=== PATIENT | female | born 1970 | race Caucasian/White ===

== ENCOUNTER 2018-10-09 21:19 | Outpatient (REF) | payer BC, SELFPAY ==
--- NOTE | 2018-10-09 16:30 | PAPFT_PTH ---
PATIENT: Yessi Sahni LOC: [facility] U#:[id number] AGE/SX: 48/F ROOM: RE10/09/[address]: NEETU Gan : 1970 BED: DIS: 10/09/2018 SPEC #: [id number] RECD: 10/12/18 13:10 STATUS: JACEK TERESA #: [id number] MENDEZ: 10/09/18 16:[address]: Amanda Benavides DEPT: [facility] Cytology RECD BY: Magdalena Mtz Tissues: 1 - CX/ENDOCX FOR PAP SMEARS Procedures: PAP THIN PREP/UVM Screening HPV DNA PROBE Comments: [id number]
== END 2018-10-09 21:39 ==
LOC: LBN 21:19
PROVIDERS: PCP Nurse Practitioner Family; Visit Provider Nurse Practitioner Family
DX: Z12.4 Encounter for screening for malignant neoplasm of cervix (principal); Z11.51 Encounter for screening for human papillomavirus (HPV)
CPT/HCPCS: 88142; 87624

== ENCOUNTER 2018-10-14 04:38 | Outpatient (CLI) | payer BC, SELFPAY ==
[2018-10-14 11:17] LABS: Hemoglobin A1C 5.4 % (4.5-6.2)
[2018-10-14 11:22] LABS: ALT 68 U/L (12-78); AST 37 U/L (15-37); Albumin 3.4 g/dL (3.4-5.0); Alkaline Phosphatase 119 U/L (46-116); BUN 16 mg/dL (7-18); Bilirubin, Total 0.4 mg/dL (0.2-1.0); CREATININE 0.92 mg/dL (0.55-1.02); Calcium 9.4 mg/dL (8.5-10.1); Chloride 102 mmol/L (98-107); Cholesterol 244 mg/dL (50-200); Glucose 85 mg/dL (70-100); HDL Cholesterol 72 mg/dL (40-60); LDL CHOLESTEROL 151 mg/dL (<100); Potassium 4.4 mmol/L (3.5-5.1); Sodium 140 mmol/L (136-145); TSH 2.05 uIU/mL (0.358-3.74); Total Protein 7.5 g/dL (6.4-8.2); Triglyceride 82 mg/dL (30-150)
[2018-10-14 11:47] LABS: FREE T4 0.92 ng/dL (0.76-1.46)
== END 2018-10-14 04:58 ==
PROVIDERS: PCP Nurse Practitioner Family; Visit Provider Nurse Practitioner Family
DX: E78.5 Hyperlipidemia, unspecified (principal)
CPT/HCPCS: 36415; 80053; 80061; 83721; 83036; 84439; 84443

== ENCOUNTER → 2019-01-11 | Outpatient (CLI) | payer BC, SELFPAY ==
--- NOTE | 2019-01-11 10:30 | DI.MAMMO_ITS ---
SYMPTOM/DIAGNOSIS: SCREENING Z12.31 BILATERAL SCREENING MAMMOGRAM: Mammograms were interpreted according to the usual protocol including computer analysis with CAD system, tomosynthesis and C view imaging. Comparison is made with exams from 2013 through 2017. The breasts are composed of fatty density tissue, breast density category A. No suspicious masses or suspicious microcalcifications are seen. There has been no significant change. IMPRESSION: Category 1, negative mammogram. Yearly screening mammography is recommended. Breast density category A. SA ASSESSMENT OF FINDINGS: Negative. Category 1. Patient will receive a letter notifying them of these results. BI-RAD category A. The breasts are almost entirely fatty.
== END ==
PROVIDERS: PCP Nurse Practitioner Family; Visit Provider Nurse Practitioner Family
DX: Z12.31 Encounter for screening mammogram for malignant neoplasm of breast (principal)
CPT/HCPCS: 77063; 77067

== ENCOUNTER 2019-01-25 09:16 | Day surgery (SDC) | payer BC, SELFPAY ==
--- NOTE | 2019-01-25 06:52 | W.COLOREPORT ---
Date of service: 01/25/19 Time of Service: 10:36 Colonoscopy Report Date of procedure: 01/25/19 Pre-op diagnosis general: Colon Cancer Screening Post-op diagnosis procedure note: same Procedure: Colonoscopy Surgeon: Brigitte Zamorano Anesthesia proc note operative: other (General/ ASA2 /Janay Kirkland, ESTHELA) Estimated blood loss (mL): 0 Pathology: none sent Complications: None Disposition: same day Indications: Mrs. Sahni is a pleasant 48 year old female who was seen in the office for a screening colonoscopy. Risks, benefits and complications have been reviewed. Complications include but are not limited to bleeding, pain, perforation, missed small lesion/polyp, sore throat, aspiration and adverse reaction to the medications. Questions were entertained and answered to their satisfaction and they wished to proceed. No guarantees were given or implied. Prep: Miralax/Dulcolax Procedure Start Time: 10:36 Procedure End Time: 10:59 Retraction Time: 16 Findings: Normal colon Procedure Description: After informed consent was obtained the patient was taken to the procedure room and placed in a left decubitous position. Monitors were applied and a time out was done. The patients name, date of , procedure, allergies to medications and metal in their body was reviewed. The patient was then sedated. Once sedated and comfortable a rectal exam was done. External exam was normal. Internal exam revealed a normal sphincter tone and no palpable masses. The scope was then introduced and retro-flexed. No internal hemorrhoids were identified. The scope was then advanced to the cecum without difficulty. The TI and appendiceal orifice were identified. The prep was adequate. The scope was then slowly retracted over 16 minutes back into the rectum. There were no polyps and no Diverticula. The scope was removed and the patient was woken up and taken back to Same day surgery in stable condition. The patient tolerated the procedure well and there were no immediate complications. Follow up: The patient should follow up in 10 years unless they develop changes in bowel habits or other new gastrointestinal complaints.
--- NOTE | 2019-01-25 06:54 | W.PM.DSUDISC ---
Discharge Plan Disposition Patient Disposition: HOME Condition: Good Discharge Details Reason For Visit: Colon Cancer screening Attending Provider: Brigitte Zamorano Primary Care Provider: Amanda Benavides Home Meds and New Rx's Prescriptions: Continued fluoxetine 40 mg capsule 40 mg PO DAILY Qty: 90 RF: 4 cetirizine 10 mg capsule 10 mg PO DAILY RF: 0 hydrocortisone [Proctosol HC] 2.5 % cream with perineal applicator 1 applic OK DAILY PRN (Reason: hemorrhoids) Qty: 28.35 RF: 4 epinephrine [EpiPen 2-Arthur] 0.3 MG/0.3 ML auto-injector 0.3 mg IM ONCE PRNRF: 0 albuterol sulfate [ProAir HFA] 8.5 GM HFA aerosol inhaler 2 puff Inhalation Q4H PRN RF: 0 Women's Daily Multivitamin 1 EACH tablet 1 ea PO DAILY RF: 0 omeprazole 10 mg capsule,delayed release(DR/EC) 10 mg PO DAILY Qty: 90 RF: 4 Discontinued polyethylene glycol 3350 17 gram/dose powder 238 g PO ONCE Qty: 238 RF: 0 bisacodyl [Dulcolax (bisacodyl)] 5 mg tablet,delayed release (DR/EC) 5 mg PO ONCE Qty: 4 RF: 0 Discharge Instructions Instructions: Colonoscopy (GEN) Additional Instructions: Findings: Normal colon Follow up: 10 years Please call if you develop: fevers >101.5 Nausea or Vomiting Abdominal pain that is not transient DAY SURGERY UNIT POST COLONOSCOPY INSTRUCTIONS 1. Because there will be medication in your system for the next 24 hours, you may feel a little sleepy. Your coordination will be affected. Therefore: a. Do not drive or operate dangerous equipment for 24 hours. b. Do not drink alcohol beverages for 24 hours (not even beer). c. Plan to go home and rest for the day. 2. Generally there are no restrictions on your activity after a day or so has gone by, but you may feel a bit fatigued for a few days. 3 After you arrive home you may have a light meal and return to a normal diet as you can tolerate it without feeling sick to your stomach. 4. After surgery, you may feel pain or discomfort. This should be only transient, but if it persists please contact your doctor. 5. If there are any questions regarding the findings of your procedure, please feel free to contact your doctor. 6. If you are unable to contact your doctor with a problem, contact the hospital at [phone]. 7. Continue all your regular medications unless directed otherwise. I understand the above instructions and have no questions. Signature of Patient or Responsible Adult Escort Date/Time Name of Responsible Adult Escort Signature of Nurse Date/Time Activity:: Activity as Tolerated Diet:: As Tolerated Discharge Orders Discharge Orders: Discharge Order (Routine); Ordered 01/25/19 Ordered By: Brigitte Zamorano DS: Diagnosis Discharge Diagnosis (1) S/P colonoscopy: Status: Acute
[2019-01-25 09:15] VITALS: BP 110/84; PULSE 66; RESP 18; TEMP 36.5; O2SAT 98
[2019-01-25] MEDS: Lactated Ringers 1,000 ML 80 ML IV (09:59)
[2019-01-25 11:30] VITALS: BP 109/45; PULSE 64; RESP 16; TEMP 36; O2SAT 94
== END 2019-01-25 12:00 | disposition home or self-care (01) ==
LOC: SUR 09:16
PROVIDERS: PCP Nurse Practitioner Family; Visit Provider Surgery
PROC: 0DJD8ZZ Inspection of Lower Intestinal Tract, Via Natural or Artificial Opening Endoscopic (ICD-10-PCS; CPT 45378; principal; 2019-01-25 10:30)
DX: Z12.11 Encounter for screening for malignant neoplasm of colon (principal); K21.9 Gastro-esophageal reflux disease without esophagitis
CPT/HCPCS: 45378; J2250

== ENCOUNTER 2020-05-17 01:21 | Outpatient (CLI) | payer BC, SELFPAY ==
--- NOTE | 2020-05-17 08:30 | DI.RAD_ITS ---
EXAM: XR LUMBAR SPINE COMPLETE CLINICAL HISTORY: lumbar back pain,m54.5. TECHNIQUE: 2D digital imaging was performed. COMPARISON: No exams were available for comparison FINDINGS: There are 5 lumbar type vertebral bodies. No spondylolysis or spondylolisthesis. The vertebral bodi es, posterior elements and disc spaces are well maintained. Bones are normally mineralized. No acut e fracture or subluxation. There is an ovoid calcification in the left abdomen overlying the renal s hadow suspicious for left nephrolithiasis. IMPRESSION: No acute abnormality in the lumbar spine. Findings suspicious for left nephrolithiasis. DATA REPOSITORY: RADIATION DOSE DELIVERED:
== END 2020-05-17 01:41 ==
PROVIDERS: PCP Nurse Practitioner Family; Visit Provider Nurse Practitioner Family
DX: M54.5 Low back pain (principal)
CPT/HCPCS: 72110

== ENCOUNTER 2020-12-19 02:39 | Outpatient (CLI) | payer BC, SELFPAY ==
--- NOTE | 2020-12-19 08:26 | DI.MAMMO_ITS ---
Exam(s) MAMMO SCREENING EXAM: MAMMO SCREENING CLINICAL HISTORY: screening,Z12.39 TECHNIQUE: Bilateral full field digital CC and MLO mammographic images were obtained with 3D tomosyn thesis and utilizing computer aided detection (CAD). COMPARISON: Available for comparison. FINDINGS: Masses/Architectural Distortion: None seen. Microcalcifications: No suspicious pleomorphic-type are seen. Skin Thickening/Nipple Retraction: None. IMPRESSION: 1. No significant interval change with no specific features of malignancy noted. 2. Unless there is more urgent need, screening mammography is recommended, as per [place] guidelines. BI-RADS Category 1 - Negative Breast Density - Category A - Almost entirely fatty Breast density category C or D implies that the patient has dense breast tissue. Dense breast tissue is very common and is not abnormal but dense breast tissue can make it harder to find cancer on a ma mmogram. Also, dense breast tissue may increase their breast cancer risk. This information about the result of the mammogram report was provided to the patient to raise their awareness. Use this report when you speak with the patient about their risks for breast cancer, which includes their family hist ory. At that time, you may recommend for more screening tests (Ultrasound or MRI) as they might be us eful based on their risk. A negative radiographic report should not delay biopsy if a dominant or clinically suspicious mass is present. Up to ten percent of cancers are not identified on mammography. A negative report may reinforce clinical impression. Adenosis and dense breasts may obscure an underlying neoplasm. False positive reports average 6 to 10%. Patient will receive a letter notifying them of these results.
== END 2020-12-19 02:59 ==
PROVIDERS: PCP Nurse Practitioner Family; Visit Provider Nurse Practitioner Family
DX: Z12.31 Encounter for screening mammogram for malignant neoplasm of breast (principal)
CPT/HCPCS: 77063; 77067

== ENCOUNTER 2020-12-19 03:35 | Outpatient (CLI) | payer BC, SELFPAY ==
[2020-12-19 12:51] LABS: HCT 36.6 % (36.0-46.0); HGB 11.9 g/dL (11.2-15.7); MCH 29.8 pg (27.0-33.0); MCHC 32.5 % (32.0-36.0); MCV 91.5 fL (80-95); MPV 12.2 fL (8.0-11.0); Platelet Count 204 10^3/uL (130-400); RDW-SD 42.8 fL; WBC 4.09 10^3/uL (4.4-10.8)
[2020-12-19 13:33] LABS: Anion Gap 8.6 mmol/L (3-11); BUN 16 mg/dL (7-18); CO2 28.4 mmol/L (21.0-32.0); CREATININE 0.9 mg/dL (0.55-1.02); Calcium 9.2 mg/dL (8.5-10.1); Calculated LDL 144 mg/dL (<100); Chloride 106 mmol/L (98-107); Cholesterol 232 mg/dL (<200); Ferritin 16 ng/mL (8-252); Glucose 83 mg/dL (74-106); HDL Cholesterol 64 mg/dL (40-60); Potassium 4.3 mmol/L (3.5-5.1); Sodium 143 mmol/L (136-145); Triglyceride 122 mg/dL (<150)
== END 2020-12-19 03:36 | disposition home or self-care (01) ==
LOC: LOS 03:35
PROVIDERS: PCP Nurse Practitioner Family; Visit Provider Nurse Practitioner Family
DX: E78.5 Hyperlipidemia, unspecified (principal); G25.81 Restless legs syndrome
CPT/HCPCS: 36415; 80048; 80061; 85027; 82728

== ENCOUNTER 2021-02-08 15:15 | Outpatient (REF) | payer BC, SELFPAY | END 2021-02-08 15:16 | disposition home or self-care (01) | LOC: LBN 15:15 | PROVIDERS: PCP Nurse Practitioner Family; Visit Provider Nurse Practitioner Family | DX: N39.0 Urinary tract infection, site not specified (principal); R39.89 Other symptoms and signs involving the genitourinary system; N94.10 Unspecified dyspareunia; N89.8 Other specified noninflammatory disorders of vagina | CPT/HCPCS: 87086; 87480; 87510; 87660 ==

== ENCOUNTER 2021-02-09 07:12 | Emergency (ER) | payer BC, SELFPAY ==
[2021-02-09 07:18] VITALS: BP 128/87; PULSE 67; RESP 14; TEMP 36.3; O2SAT 97
--- NOTE | 2021-02-09 07:48 | W.ED.GENAD ---
Discharge Plan Disposition Patient Disposition: HOME Condition: Stable Discharge Details Clinical Impression: Vaginal lesion Primary Care Provider: Amanda Benavides ED Provider: Ayala Gleason Home Meds and New Rx's Prescriptions: New valacyclovir 1 gram tablet 1,000 mg PO BID 10 Days Qty: 20 RF: 0 doxycycline hyclate 100 mg tablet 100 mg PO BID 7 Days Qty: 14 RF: 0 Continued escitalopram oxalate 20 mg tablet 20 mg PO DAILY Qty: 90 RF: 4 cetirizine 10 mg capsule 10 mg PO DAILY RF: 0 ropinirole 3 mg tablet 3 mg PO QHS Qty: 90 RF: 4 epinephrine [EpiPen 2-Arthur] 0.3 MG/0.3 ML auto-injector 0.3 mg IM ONCE PRNRF: 0 albuterol sulfate [ProAir HFA] 8.5 GM HFA aerosol inhaler 2 puff Inhalation Q4H PRN RF: 0 Women's Daily Multivitamin 1 EACH tablet 1 ea PO DAILY RF: 0 omeprazole 20 mg capsule,delayed release(DR/EC) 20 mg PO DAILY Qty: 90 RF: 4 Discharge Instructions Instructions: Genital Herpes Simplex (ED), Syphilis (ED), Contact Dermatitis (ED) Additional Instructions: You were given information regarding possible causes of your vaginal lesions. It is possible you are having an inflammatory or allergic reaction to the lubricant you are using. Stop using this lubricant. You can take tepid baths to soak the area. Do not apply any lotions or creams to the area. Your prescriptions has been sent electronically to your pharmacy. Call the pharmacy to make sure your prescriptions is ready before pickup. Take the prescriptions as directed. Start taking the antiviral medication valacyclovir today. You were also given a prescription for the antibiotic doxycycline which you can hold on taking for the 2 days to see if you have any relief of symptoms with the antiviral medication. If you develop any worsening redness, swelling, pain or persistent fevers, start the oral antibiotics. Follow-up with your scheduled appointment with [employer] [employer] on Friday. Return immediately to the emergency department if you develop any significant worsening or new concerning symptoms. Discharge Data Discharge Physician: Ayala Gleason Medical Decision Making 50 yo F presents with painful vaginal lesions for the past 3 days after using a new vaginal lubricant. Seen at [facility] yesterday and had a vaginal Pap screen which was negative. Urine culture pending. She was scheduled for an [employer] appointment for Friday She has a tender erythematous papule to the right labia majora with multiple tender ulcers noted within the labia minora and opening of vagina. Differential diagnosis includes herpes. Also consider syphilis with potential labial chancre. She has no lesions to her palms or soles. She appears nontoxic. Her abdomen is soft and nontender. She states she had cervical swabs obtained at [facility] yesterday so we will hold on speculum exam at this time. The vaginal lesions were swabbed and sent for culture. We will also obtain serum herpes and syphilis PCR. Will start antiviral valacyclovir. We will also give a prescription for antibiotics for potential superimposed bacterial infection. Advised patient that she can start the antivirals and hold on antibiotics at this time as there does not appear to be a significant cellulitis. Discussed that her symptoms may likely be due to the vaginal lubricant, but also consider other STDs. Advised to follow-up with her appointment with [facility] on Friday for reevaluation, testing results, and consideration for Pap smear for possible HPV although exam does not appear consistent with this. Usual and customary return precautions given prior to discharge. Medical Records Medical records reviewed: Yes I reviewed the patient's medical records. HPI General Mode of arrival: ambulatory. Date/Time Provider Initiated Documentation: 02/09/21 07:28. Limitations to Documentation: no limitations. Information obtained by: patient. HPI Narrative: Patient is a 50-year-old female who presents with painful vaginal lesions for the past 3 days. Patient states she was on vacation recently and used a new lubricant with her . She admits to some vaginal irritation and discomfort during intercourse. She also admits to a temp of 101 over the past couple days but not today. She states she has had some intermittent brown discharge but denies any vaginal bleeding, yellow or green discharge. She states the lesions are not painful at rest but with any air swelling over the area or light touch, they are burning and itching. She denies any recent exposure to a hot tub. She states she is sexually active without protection with her of 20 years and denies any known exposure to STDs. She admits to pain with urination only when it touches the area but otherwise denies any dysuria or frequency. She denies any nausea, vomiting or abdominal pain. She denies any other new soaps, lotions or detergents. Related Data Home Medications Medication Instructions Recorded Confirmed Women's Daily Multivitamin 1 ea PO DAILY 06/07/14 02/09/21 albuterol sulfate [ProAir HFA] 2 puff INHALATION Q4H PRN inhaler 06/07/14 02/09/21 epinephrine [EpiPen 2-Arthur] 0.3 mg IM ONCE PRN 06/07/14 02/09/21 cetirizine 10 mg capsule 10 mg PO DAILY 10/12/18 02/09/21 escitalopram oxalate 20 mg tablet 20 mg PO DAILY #90 tab 06/30/20 02/09/21 omeprazole 20 mg capsule,delayed 20 mg PO DAILY #90 cap 10/16/20 02/09/21 release ropinirole 3 mg tablet 3 mg PO QHS #90 tab 12/15/20 02/09/21 doxycycline hyclate 100 mg PO BID 7 Days #14 tab 02/09/21 valacyclovir 1,000 mg PO BID 10 Days #20 tab 02/09/21 Previous Rx's Medication Instructions Recorded escitalopram oxalate 20 mg tablet 20 mg PO DAILY #90 tab 06/30/20 omeprazole 20 mg capsule,delayed 20 mg PO DAILY #90 cap 10/16/20 release ropinirole 3 mg tablet 3 mg PO QHS #90 tab 12/15/20 doxycycline hyclate 100 mg PO BID 7 Days #14 tab 02/09/21 valacyclovir 1,000 mg PO BID 10 Days #20 tab 02/09/21 Allergies Allergy/AdvReac Type Severity Reaction Status Date / Time egg Allergy Unknown HIVES; Verified 02/09/21 07:24 SWELLING INTHE ROOF OF THE MOUTH peanut Allergy Unknown HIVES; Verified 02/09/21 07:24 SWELLING IN THE ROOF OF THE MOUTH promethazine HCl AdvReac Unknown JUMPS OUT Verified 02/09/21 07:24 [From Phenergan] OF MY SKIN General Stated Complaint: RashLesion LESLI: 3 Review of Systems All systems reviewed & are unremarkable except as noted in HPI and below Constitutional Constitutional: Reports as per HPI, Denies chills and Denies fever(s) Eyes Eyes: Denies blurry vision ENT Ears, Nose, Mouth, and Throat: Denies dizziness, Denies sore throat and Denies throat swelling Cardiovascular Cardiovascular: Denies chest pain and Denies dyspnea Respiratory Respiratory: Denies cough and Denies dyspnea Gastrointestinal Gastrointestinal: Denies abdominal pain, Denies diarrhea and Denies vomiting Genitourinary Genitourinary: Denies hematuria, Reports genital lesions and Denies dysuria Musculoskeletal Musculoskeletal: Denies back pain and Denies numbness Integumentary/Breasts Skin/Breast: Denies lesions and Denies rash Neurologic Neurologic: Denies dizziness, Denies localized weakness and Denies numbness Allergic/Immunologic Allergic/Immunologic: Denies throat swelling COUNT INCLUDES THE [facility] Medical History Allergic rhinitis Depressive disorder Generalized anxiety disorder GERD with esophagitis Hyperlipidemia Irritable bowel Mild intermittent asthma Restless leg syndrome Surgical History History of bilateral ligation of fallopian tubes (10/01/02) History of section (~1993) x 2, 1993 and 2002 History of esophagogastroduodenoscopy (12/31/10) S/P colonoscopy (01/25/19) Family History Mother Hypertension Father , at 83 Type 2 diabetes mellitus Skin cancer Heart disease Presence of permanent cardiac pacemaker Chronic kidney disease Sister Depression Skin cancer Brother Asthma Daughter Asthma Daughter Depression Asthma Daughter Depression Maternal Grandfather Heart disease Maternal Grandmother Heart disease Emphysema lung Essential hypertension Paternal Grandfather , in his 30s from PNA No problems noted. 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 Pets and animals: No What is your relationship status?: Panel score (0-1 are the most socially isolated patients): 1 Duration: < 15 minutes/day Seatbelt use: always Helmet use: Yes Helmet use: always Drive intox or ride w/intox funeral car driver: No Water heater temp set <120 deg: Yes Working smoke detector in home: Yes Fire extinguisher in home: Yes Carbon monox detector in home: Yes Do you feel safe at home: Yes Do you feel safe in your relationship?: Yes Female Reproductive History Menstrual control method: permanent sterilization History History 3 Para 3 Hx # Term Pregnancies Multiple births Hx # Pregnancies Ectopic pregnancies AB induced Hx Number of Living Children 3 AB spontaneous Exam Const General: cooperative, healthy appearing and no acute distress HENMT Head: normal to inspection Mouth: oral mucosae normal Eyes General: appearance normal, both eyes and all related structures Neck Neck: normal visual inspection Resp Effort & Inspection: normal respiratory effort and able to speak in complete sentences Cardio Rate: regular rate Female genitals images: 1. 1 x 1 cm tender papule with 2 mm erythematous papule in center. No drainage or bleeding. 2. Multiple tender 2 to 3 mm ulcers with surrounding erythema noted within labia minora and inner vaginal vault Skin General skin exam: no rashes or lesions noted Neuro General: patient alert, patient awake and patient oriented x3 Motor: muscle tone normal throughout Extrem General: normal to inspection and full ROM Psych Appearance: grossly normal Affect: normal affect Course Vital Signs Vital signs: Vital Signs Temperature 97.3 F L 02/09/21 07:18 Pulse 67 02/09/21 07:18 Respiratory Rate 14 02/09/21 07:18 Blood Pressure 128/87 02/09/21 07:18 Pulse Oximetry 97 02/09/21 07:18 Temperature 97.3 F L 02/09/21 07:18 Temperature Source Skin 02/09/21 07:18 Pulse 67 02/09/21 07:18 Respiratory Rate 14 02/09/21 07:18 Respiratory Effort Non-Labored 02/09/21 07:26 Blood Pressure 128/87 02/09/21 07:18 Blood Pressure Position Supine 02/09/21 07:18 Pulse Oximetry 97 02/09/21 07:18 Oxygen Delivery Method Room Air 02/09/21 07:18 Oxygen Flow Rate 0 02/09/21 07:18 Pain Level 0 02/09/21 07:18
[2021-02-10 14:04] LABS: HSV 1 DNA Result Positive (Negative); HSV 2 DNA Result Negative (Negative)
[2021-02-10 18:11] LABS: HSV 1 PCR, Blood Positive (Negative); HSV 2 PCR, Blood Negative (Negative)
--- NOTE | 2021-02-10 21:15 | W.ED.FU ---
[facility] laboratories noted a positive herpes simplex virus PCR and blood result. Patient was called on her cell phone and notified of these results. She states her symptoms are somewhat improving. She states she noted some yellow vaginal discharge. She has an appointment with [facility] on Friday and is advised to discuss her results and any further questions or concerns with them. Discussed that they may want to repeat cervical culture swabs to rule out gonorrhea or chlamydia. Patient advised to return to the ER with any concerns.
[2021-02-12 11:55] LABS: Syphilis Serology (RPR) Negative (Negative)
== END 2021-02-09 09:19 | disposition home or self-care (01) ==
PROVIDERS: Emergency Provider Physician Assistant; PCP Nurse Practitioner Family
DX: A60.09 Herpesviral infection of other urogenital tract (principal)
CPT/HCPCS: 36415; 87529; 99283; 86592

== ENCOUNTER 2021-11-27 02:04 | Outpatient (CLI) | payer BC, SELFPAY ==
[2021-11-27 07:38] LABS: HCT 36.8 % (36.0-46.0); HGB 12.1 g/dL (11.2-15.7); MCH 30.3 pg (27.0-33.0); MCHC 32.9 % (32.0-36.0); MCV 92 fL (80-95); MPV 11.5 fL (8.0-11.0); Platelet Count 211 10^3/uL (130-400); RDW 13.1 % (11.7-14.6); RDW-SD 43.9 fL; WBC 4.33 10^3/uL (4.4-10.8)
[2021-11-27 09:30] LABS: ALT 48 U/L (14-59); AST 34 U/L (15-37); Albumin 3.5 g/dL (3.4-5.0); Alkaline Phosphatase 117 U/L (46-116); Anion Gap 5.9 mmol/L (3-11); BUN 17 mg/dL (7-18); Bilirubin, Total 0.3 mg/dL (0.2-1.0); CO2 29.1 mmol/L (21.0-32.0); CREATININE 0.9 mg/dL (0.55-1.02); Calcium 8.7 mg/dL (8.5-10.1); Calculated LDL 136 mg/dL (<100); Chloride 106 mmol/L (98-107); Cholesterol 212 mg/dL (<200); Ferritin 12 ng/mL (8-252); Glucose 91 mg/dL (74-106); HDL Cholesterol 49 mg/dL (40-60); Potassium 4.6 mmol/L (3.5-5.1); Sodium 141 mmol/L (136-145); Total Protein 7.1 g/dL (6.4-8.2); Triglyceride 136 mg/dL (<150)
[2021-11-27 09:36] LABS: Iron 43 ug/dL (50-170); Total Iron Binding Capacity 379 ug/dL (250-450); Transferrin Sat 11 % (15-50)
== END 2021-11-27 02:05 | disposition home or self-care (01) ==
LOC: LBO 02:04
PROVIDERS: PCP Nurse Practitioner Family; Visit Provider Nurse Practitioner Family
DX: Z00.00 Encounter for general adult medical examination without abnormal findings (principal); E78.5 Hyperlipidemia, unspecified; G25.81 Restless legs syndrome
CPT/HCPCS: 36415; 80053; 80061; 85027; 82728; 83540; 83550

== ENCOUNTER → 2022-01-21 02:16 | Outpatient (CLI) | payer BC, SELFPAY ==
--- NOTE | 2022-01-21 08:15 | DI.MAMMO_ITS ---
Exam(s) MAMMO SCREENING EXAM: MAMMO SCREENING CLINICAL HISTORY: screening,z12.39. TECHNIQUE: Bilateral full field digital CC and MLO mammographic images were obtained with 3D tomosyn thesis and utilizing computer aided detection (CAD). COMPARISON: Prior mammograms were reviewed, the most recent being December 2020. FINDINGS: No CAD designations. There are no new spiculated masses nor malignant appearing microcalcification groups. Few benign-appearing nodules in the breasts are unchanged from prior studies. There is no significant architectural distortion nor skin thickening-retraction. IMPRESSION: Stable benign findings. No radiographic evidence of malignancy. BI-RADS Category 2 - Benign Findings Breast Density - Category B - Scattered areas of fibroglandular density Breast density Category C or D implies that the patient has dense breast tissue. Dense breast tissue can make it harder to find cancer on a mammogram. Dense breast tissue is also associated with an incr eased risk of breast cancer. This information about the result of the mammogram report was provided to the patient to raise their awareness. Use this report when you speak with the patient about their risks for breast cancer, which includes their family history. At that time, you may recommend additional screening tests (Ultrasoun d or MRI) as these tests may add significant information. A negative radiographic report should not delay biopsy if a dominant or clinically suspicious mass is present. Up to ten percent of cancers are not identified on mammography. A negative report may reinforce clinical impression. Adenosis and dense breasts may obscure an underlying neoplasm. False positive reports average 6 to 10%. Patient will receive a letter notifying them of these results.
== END ==
PROVIDERS: PCP Nurse Practitioner Family; Visit Provider Nurse Practitioner Family
DX: Z12.31 Encounter for screening mammogram for malignant neoplasm of breast (principal)
CPT/HCPCS: 77063; 77067

== ENCOUNTER → 2022-05-07 01:46 | Outpatient (CLI) | payer BC, SELFPAY ==
--- NOTE | 2022-05-07 07:45 | DI.MRI_ITS ---
Exam(s) MR CERVICAL SPINE WO EXAM: MR CERVICAL SPINE WO CLINICAL HISTORY: +Babinski b/l with imbalance.,gait abnl, r26.9,r29.2 TECHNIQUE: Multiplanar multisequence MRI of the cervical spine was performed without intravenous con trast. COMPARISON: No exams were available for comparison FINDINGS: CERVICOMEDULLARY JUNCTION: Intact with no evidence of cerebellar tonsillar ectopia. No obvious abnor mality of the odontoid process. No evidence of Chiari 1 malformation. CERVICAL SPINAL CORD: There is no abnormal signal in the cervical spinal cord and no evidence of foca l cord atrophy nor focal cord swelling. OSSEOUS:There are no cervical fractures evident. No significant osseous lesions in the cervical vert ebrae. Mild straightening of the cervical curvature noted. INDIVIDUAL LEVELS: C2-3: Normal disc height. No disc herniation. No central canal stenosis there is some facet arthrop athy on the left side but no significant foraminal stenosis on either side. Right facet joint unrema rkable. C3-4: Mild decreased disc height. No disc herniation evident. No central canal stenosis. No forami nal stenosis on the right side. Mild foraminal stenosis on the left side. Mild facet arthropathy. C4-5: Moderate disc space narrowing. At this level there is symmetrical annular bulging and bilatera l Luschka joint osteophytes. The annular bulging causes some effacement of the anterior thecal sac b ut not the spinal cord. No abnormal signal in the cord at this level. There is mild-moderate bilate ral foraminal stenosis due to the Luschka joint osteophytes bilaterally and mild degenerative changes in the bilateral facet joints. C5-6: No disc herniation at this level. No central canal stenosis. No Luschka joint osteophytes. N o facet arthropathy at this level on the right side. No foraminal stenosis on the right side. On th e left side at this level there is some facet arthropathy and mild foraminal stenosis. C6-7: This level exhibits relatively preserved disc height but posterior annular bulging and a centra l-left paracentral disc protrusion which extends posteriorly 3 millimeters and is approximately 1.3 c m wide. This effaces the thecal sac but not the spinal cord and there is minimal central canal steno sis. No abnormal signal in the cord at this level. Left facet joint exhibits minimal degenerative c hange in no foraminal stenosis on the left right side exhibits minimal my-mild degenerative change in the facet joints and mild foraminal stenosis. C7-T1: No disc herniation nor central canal stenosis. No facet arthropathy.No foraminal stenosis. IMPRESSION: 1. Multilevel degenerative disc disease findings as described individually at C 4-5 and C6-7 levels. 2. No tight central canal stenosis. No abnormal signal in the cervical spinal cord. 3. Mild asymmetric foraminal stenosis as described above. 4. No evidence of cerebellar tonsillar ectopia nor Chiari malformation. DATA REPOSITORY:
--- NOTE | 2022-05-07 07:45 | DI.MRI_ITS ---
Exam(s) MR BRAIN WO EXAM: MR BRAIN WO CLINICAL HISTORY: bilateral Babinski reflex, gait abnormality,r26.9,r29.2 TECHNIQUE: Multiplanar multisequence MRI of the brain was performed. COMPARISON: No exams were available for comparison FINDINGS: CEREBRAL PARENCHYMA: There is no evidence of intracranial hemorrhage, mass effect, or shift of midline structures. There are no extra-axial fluid collections. Ventricles are not enlarged or shifted. There is no significant focal signal abnormality in the cerebellar hemispheres nor within the margarito, m idbrain, and thalami. There is no abnormal signal abnormality in the periventricular white matter. No evidence of demyelin ating disease. There is no significant focal signal abnormality evident on diffusion imaging to suggest acute ischem ic event. PITUITARY GLAND: No mass nor parasellar abnormality. No obvious abnormality in the cavernous sinuses. FLOW VOIDS: The expected flow void are noted. No evidence of obvious aneurysm nor obvious vascular ma lformation. PARANASAL SINUSES: The visualized paranasal sinuses appear unremarkable. No obvious finding ORBITS: No obvious findings. IMPRESSION: No significant intracranial findings on this noninfused MRI scan of the brain. DATA REPOSITORY:
== END ==
PROVIDERS: PCP Nurse Practitioner Family; Visit Provider Psychiatry & Neurology Neurology
DX: R26.9 Unspecified abnormalities of gait and mobility (principal); R29.2 Abnormal reflex; M50.221 Other cervical disc displacement at C4-C5 level; M50.223 Other cervical disc displacement at C6-C7 level
CPT/HCPCS: 70551; 72141

== ENCOUNTER 2022-11-19 02:36 | Outpatient (CLI) | payer BC, SELFPAY ==
[2022-11-19 10:49] LABS: HCT 40.4 % (36.0-46.0); HGB 13.5 g/dL (11.2-15.7); MCHC 33.4 % (32.0-36.0); MCV 93 fL (80-95); MPV 10.6 fL (8.0-11.0); Platelet Count 220 10^3/uL (130-400); RBC 4.35 10^6/uL (3.93-5.22); RDW 12.1 % (11.7-14.6); RDW-SD 41.7 fL; WBC 5.75 10^3/uL (4.4-10.8)
[2022-11-19 11:53] LABS: Total Iron Binding Capacity 389 ug/dL (250-450)
[2022-11-19 12:18] LABS: BUN 12 mg/dL (7-18); CREATININE 0.9 mg/dL (0.55-1.02); Calcium 9.3 mg/dL (8.5-10.1); Chloride 104 mmol/L (98-107); Estimated GFR 75.97 (mL/min/1.73m2); Ferritin 60 ng/mL (8-252); Glucose 85 mg/dL (74-106); Magnesium 1.8 mg/dL (1.8-2.4); Potassium 4.2 mmol/L (3.5-5.1); Sodium 140 mmol/L (136-145); Vitamin B12 1097 pg/mL (193-986)
== END 2022-11-19 02:37 | disposition home or self-care (01) ==
PROVIDERS: PCP Nurse Practitioner Family; Visit Provider Nurse Practitioner Family
DX: E61.1 Iron deficiency (principal); K21.00 Gastro-esophageal reflux disease with esophagitis, without bleeding; F41.8 Other specified anxiety disorders; E78.5 Hyperlipidemia, unspecified; G25.81 Restless legs syndrome; R26.89 Other abnormalities of gait and mobility
CPT/HCPCS: 36415; 80048; 85027; 82607; 82728; 83550; 83735

== ENCOUNTER 2022-12-20 15:32 | Outpatient (REF) | payer BC, SELFPAY | END 2022-12-20 15:33 | disposition home or self-care (01) | LOC: LBN 15:32 | PROVIDERS: PCP Nurse Practitioner Family; Visit Provider Nurse Practitioner Family | DX: J02.9 Acute pharyngitis, unspecified (principal) | CPT/HCPCS: 87070 ==

== ENCOUNTER → 2023-09-29 04:24 | Outpatient (CLI) | payer BC, SELFPAY ==
--- NOTE | 2023-09-29 10:38 | DI.RAD_ITS ---
Exam(s) XR SHOULDER RT COMPLETE 2+V EXAM: XR SHOULDER RT COMPLETE 2+V CLINICAL HISTORY: right shoulder pain,m25.511. TECHNIQUE: 2D digital imaging was performed. Five views. COMPARISON: CR RIGHT SHOULDER COMPLETE from 09/17/2013 FINDINGS: BONES: No acute fracture is present. No bony destructive lesion is seen. JOINTS: No dislocation present. The glenohumeral joint space is maintained. There is mild spurring at the inferior glenoid. The AC joint is unremarkable. SOFT TISSUE: Calcifications above the greater tuberosity, consistent with calcific tendinosis. IMPRESSION: Mild glenohumeral joint degenerative changes and calcific tendinosis. DATA REPOSITORY: RADIATION DOSE DELIVERED:
== END ==
PROVIDERS: PCP Nurse Practitioner Family; Visit Provider Nurse Practitioner Family
DX: M25.511 Pain in right shoulder (principal)
CPT/HCPCS: 73030

== ENCOUNTER → 2023-11-18 05:03 | Outpatient (CLI) | payer BC, SELFPAY ==
--- NOTE | 2023-11-18 07:45 | DI.MRI_ITS ---
Exam(s) MR UPPER JOINT RT WO EXAM: MR UPPER JOINT RT WO CLINICAL HISTORY: R SHOULDER PAIN,RT ROTATOR CUFF TEAR,CALCIFIC TENDONITIS,M25.511,M75.101,. TECHNIQUE: Multiplanar multisequence MRI was performed. COMPARISON: CR XR SHOULDER RT COMPLETE 2+V from 09/29/2023 FINDINGS: BONES: There is no fracture or contusion pattern. Small subchondral cysts are seen in the humeral hea d. JOINTS: There are mild degenerative changes seen at the acromioclavicular joint. There is thinning o f the articular cartilage at the glenohumeral joint. TENDONS: Supraspinatus: There is tendinosis of the supraspinatus tendon. No evidence of a tear. Infraspinatus: There is tendinosis of the infraspinatus tendon without evidence of a tear. Subscapularis: Unremarkable. Teres Minor: Unremarkable. Biceps and Roll: Unremarkable. MUSCLES: Unremarkable. GLENOID LABRUM: Unremarkable on this noncontrast examination. SOFT TISSUES: Unremarkable. LIGAMENTS: Unremarkable. OTHER: There is a small amount of fluid seen in the subacromial subdeltoid bursa. IMPRESSION: 1. Supraspinatus and infraspinatus tendinosis without evidence of a tear. 2. Degenerative changes seen at the acromioclavicular and glenohumeral joints. 3. Small amount of fluid in subacromial subdeltoid bursa which can be seen with bursitis. DATA REPOSITORY:
== END ==
PROVIDERS: PCP Nurse Practitioner Family; Visit Provider Student in an Organized Health Care Education/Training Program
DX: M75.31 Calcific tendinitis of right shoulder
CPT/HCPCS: 73221

== ENCOUNTER 2023-11-20 01:11 | Outpatient (CLI) | payer BC, SELFPAY ==
[2023-11-20 12:21] LABS: Anion Gap 7.8 mmol/L (3-11); BUN 20 mg/dL (7-18); CO2 30.2 mmol/L (21.0-32.0); CREATININE 0.9 mg/dL (0.55-1.02); Calcium 9.6 mg/dL (8.5-10.1); Calculated LDL 146 mg/dL (<100); Chloride 104 mmol/L (98-107); Cholesterol 232 mg/dL (<200); Glucose 92 mg/dL (74-106); HDL Cholesterol 71 mg/dL (40-60); Potassium 4.1 mmol/L (3.5-5.1); Sodium 142 mmol/L (136-145); Triglyceride 76 mg/dL (<150)
[2023-11-20 19:55] LABS: Hepatitis C Ab w Rflx HCV PCR Negative (Negative)
[2023-11-21 09:59] LABS: Lab Add On Test DONE
[2023-11-21 10:23] LABS: Ferritin 69 ng/mL (8-252)
== END 2023-11-20 01:12 | disposition home or self-care (01) ==
LOC: LBO 01:12
PROVIDERS: PCP Nurse Practitioner Family; Visit Provider Nurse Practitioner Family
DX: E78.5 Hyperlipidemia, unspecified (principal); E61.1 Iron deficiency
CPT/HCPCS: 36415; 80048; 80061; 86803; 82728

== ENCOUNTER 2023-11-21 10:28 | Outpatient (REF) | payer BC, SELFPAY ==
--- NOTE | 2023-11-21 10:00 | PAPFT_PTH ---
PATIENT: Yessi Sahni LOC: [facility] U#:[id number] AGE/SX: 53/F ROOM: RE11/21/[address]: NEETU Gan : 1970 BED: DIS: 11/21/2023 SPEC #: [id number] RECD: 11/21/23 13:26 STATUS: JACEK REMaci #: [id number] MENDEZ: 11/21/23 10:[address]: Amanda Benavides DEPT: [facility] Cytology RECD BY: Magdalena Mtz Tissues: 1 - CX/ENDOCX FOR PAP SMEARS Procedures: PAP THIN PREP/UVM Screening HPV DNA PROBE Comments: [id number]
== END 2023-11-21 10:29 | disposition home or self-care (01) ==
LOC: LBN 10:28
PROVIDERS: PCP Nurse Practitioner Family; Visit Provider Nurse Practitioner Family
DX: Z01.419 Encounter for gynecological examination (general) (routine) without abnormal findings (principal); Z11.51 Encounter for screening for human papillomavirus (HPV)
CPT/HCPCS: 88142; 87624

== ENCOUNTER → 2023-12-09 09:13 | Outpatient (BNVA) | payer MEDICARE, SELFPAY | PROVIDERS: PCP Nurse Practitioner Family; Referring Provider Nurse Practitioner Family; Visit Provider Student in an Organized Health Care Education/Training Program | DX: M75.101 Unspecified rotator cuff tear or rupture of right shoulder, not specified as traumatic (principal); M75.31 Calcific tendinitis of right shoulder | CPT/HCPCS: 99213 ==

== ENCOUNTER → 2023-12-18 04:41 | Outpatient (CLI) | payer MEDICARE, SELFPAY ==
--- NOTE | 2023-12-18 08:00 | DI.MAMMO_ITS ---
Exam(s) MAMMO SCREENING EXAM: MAMMO SCREENING CLINICAL HISTORY: screening, Z12.39. TECHNIQUE: Bilateral full field digital CC and MLO mammographic images were obtained with 3D tomosyn thesis and utilizing computer aided detection (CAD). COMPARISON: Prior mammograms were reviewed. FINDINGS: There has been no significant change in the appearance and distribution of the fibroglandular tissue. There are no CAD designations. There are no new spiculated masses nor malignant appearing microcalcification groups. Small benign-appearing nodule left breast is unchanged from prior mammograms. There is no significant architectural distortion nor skin thickening-retraction. IMPRESSION: No radiographic evidence of malignancy. Stable benign appearing findings. BI-RADS Category 2 - Benign Findings Breast Density - Category B - Scattered areas of fibroglandular density Breast density Category C or D implies that the patient has dense breast tissue. Dense breast tissue can make it harder to find cancer on a mammogram. Dense breast tissue is also associated with an incr eased risk of breast cancer. This information about the result of the mammogram report was provided to the patient to raise their awareness. Use this report when you speak with the patient about their risks for breast cancer, which includes their family history. At that time, you may recommend additional screening tests (Ultrasoun d or MRI) as these tests may add significant information. A negative radiographic report should not delay biopsy if a dominant or clinically suspicious mass is present. Up to ten percent of cancers are not identified on mammography. A negative report may reinforce clinical impression. Adenosis and dense breasts may obscure an underlying neoplasm. False positive reports average 6 to 10%. Patient will receive a letter notifying them of these results.
--- NOTE | 2023-12-18 08:00 | DI.US_ITS ---
Exam(s) US PELVIS TRANSVAGINAL EXAM: US PELVIS TRANSVAGINAL CLINICAL HISTORY: uterus enlarged, N98.3 HYPERTROPY OF UTERUS TECHNIQUE: Ultrasound of the pelvis was performed both transabdominal and transvaginal. COMPARISON: US RIGHT BREAST ULTRASOUND from 08/05/2012 FINDINGS: UTERUS: Nongravid and anteverted Measures 6 cm length x 3 cm AP x 3.2 cm wide. There is an anterior myometrial fibroid at the level the fundus measuring 3 x 1.5 x 2.3 cm.This is sl ightly right of center. Endometrium was not able to be differentiated from the myometrium on this study. No obvious fluid in the endometrial canal. CERVIX: There are no obvious nabothian cysts. RIGHT OVARY: Not visualized LEFT OVARY: Measures 1.3 x 2.0 x 1.0 cm No significant cysts nor masses evident in the left ovary. CUL-DE-SAC: No free fluid evident. IMPRESSION: 1. There is a 3 cm fibroid in the uterine fundus region, slightly right of center. 2. Was not able to adequately visualize the endometrial on this study therefore cannot be assessed. 3. Left ovary appears unremarkable. Right ovary not identified. DATA REPOSITORY:
== END ==
PROVIDERS: PCP Nurse Practitioner Family; Visit Provider Nurse Practitioner Family
DX: Z12.31 Encounter for screening mammogram for malignant neoplasm of breast (principal); N85.2 Hypertrophy of uterus
CPT/HCPCS: 77063; 77067; 76830; 76856